=== PATIENT | male | born 1950 | race Caucasian/White ===

== ENCOUNTER 2019-01-12 07:35 | Day surgery (SDC) ==
[2019-01-12 08:48] VITALS: TEMP 98.6
[2019-01-12] MEDS ORDERED: SUBLIMAZE ONE (09:46)
[2019-01-12] MEDS ORDERED: DIPRIVAN 20 ML VIAL IVP ONE (09:46)
[2019-01-12 11:28] VITALS: BP 121/56
--- NOTE | 2019-01-13 08:19 | OP ---
INDICATIONS FOR PROCEDURE: 68-year-old gentleman presents for endoscopy and colonoscopy. He has a history of short segment Dill's disease. He also has a history of adenomatous polyps with the last colonoscopy three years ago. MEDICATIONS: SEE ANESTHESIA NOTES. PROCEDURE: 1. ENDOSCOPY, BIOPSY. 2. COLONOSCOPY, SNARE POLYPECTOMY. REPORT: The risks, benefits, alternatives and limitations were discussed in detail with the patient. Informed consent was obtained. After adequate sedation was achieved, the video endoscope was introduced in the posterior pharynx and esophagus under direct vision and easily advanced down to the second portion of the duodenum. I then slowly withdrew. The duodenal mucosa appeared unremarkable as did the duodenal bulb. The antrum and body were relatively unremarkable. The scope was retroflexed to look at the cardia and fundus which was unremarkable. The scope was anteflexed and withdrawn back through the esophagus. The GE junction was located at the top of the gastric folds at the diaphragmatic hiatus. This was roughly at 41 cm. There were tongues extending proximal and several islands just proximal. This was all in a segment less than a centimeter in size. Four quadrant biopsies and targeted biopsies were obtained for histological review. The remaining esophagus appeared unremarkable. The patient tolerated the procedure well with stable vital signs and pulse oximetry throughout. The patient's bed was turned. A digital rectal exam revealed good tone, no masses. The colonoscope was introduced in the rectum and advanced under direct visual guidance to the cecum. The cecum was identified by the appendiceal orifice and IC valve. I then slowly withdrew the scope in a circumferential manner examining the mucosa quite carefully. I looked on the proximal and distal side of folds and flexures as best as possible. I was able to retroflex the scope in the right colon as well as the left colon to increase visualization. In the sigmoid colon there was a small 5 mm polyp. I removed this by snare technique. In the distal sigmoid there was a 4 to 5 mm diminutive polyp that I removed by snare technique. There were several small mouth diverticula scattered throughout the sigmoid. No other abnormalities were noted including on retroflex view of the anal canal. The prep was adequate to identify polyps greater than 6 mm in size. There was stool retained in puddles throughout the colon but I was able to wash and suction most of this off as I advanced the scope and then again as I withdrew. The withdrawal time was 13 minutes and 8 seconds. The patient tolerated the procedure well with stable vital signs and pulse oximetry throughout. IMPRESSION: 1. SHORT SEGMENT DILL'S. 2. TWO (2) COLONIC POLYPS REMOVED. 3. SIGMOID DIVERTICULOSIS. RECOMMENDATIONS: 1. Strict reflux precautions. 2. Office visit as needed. 3. Await polyp pathology to confirm benign nature. 4. Await esophageal biopsies. If there is no evidence of dysplasia or atypia, recommend repeat endoscopy examination again in three years. 5. Recommend colonoscopy examination again in three years. 6. Will see him back in the office as needed. CC: DR. PRISCILA REYNA
== END 2019-01-12 11:00 | disposition home or self-care (01) ==
LOC: SURG 07:35
PROVIDERS: ATTEND Internal Medicine Gastroenterology
DX: K22.70 Barrett's esophagus without dysplasia (principal); Z86.010 Personal history of colon polyps; Z83.71 Family history of colonic polyps; K63.5 Polyp of colon; D12.4 Benign neoplasm of descending colon; D12.5 Benign neoplasm of sigmoid colon